=== PATIENT | female | born 2000 | race American Indian/Alaskan Native ===

== ENCOUNTER 2022-01-10 22:16 | Outpatient (CLI) | payer OTHER, MEDICAID ==
[2022-01-10] MEDS ORDERED: LACTATED RINGERS 500 ML IV ONE (22:38)
[2022-01-10 23:07] VITALS: BP 110/61
--- NOTE | 2022-01-11 01:14 | Ultrasound Report ---
ULTRASOUND OBSTETRIC Indication: well-being. Findings: There is a single intrauterine . BPD = 8.37 cm = 33 weeks, 5 day(s). Head circumference = 31 cm = 34 weeks, 5 day(s). Abdominal circumference = 30.6 cm = 34 weeks, 4 day(s). Femur length = 7.2 cm = 36 weeks, 0 day(s). Overall estimated sonographic age = 34 weeks, 5 day(s). heart rate is 146 beats per minute. Estimated weight is 2540 grams position is cephalic. Cervix appears closed. DEONTE measures 8.7 cm Impression: 1. Single living intrauterine with estimated sonographic age of 34 weeks, 5 day(s). 2. No sonographic abnormality identified. Signer Name: Vinny Sultana MD Signed: 01/11/2022 1:10 AM Workstation Name: [email or web address]
== END 2022-01-11 01:41 | disposition home or self-care (01) ==
LOC: TRG 22:16 → APU 22:17 → TRG 01-11 01:41
PROVIDERS: ATTEND Obstetrics & Gynecology Gynecology
DX: O47.03 False labor before 37 completed weeks of gestation, third trimester (principal); Z3A.36 36 weeks gestation of pregnancy
CPT/HCPCS: 59025; 76816